=== PATIENT | male | born 1945 | race Caucasian/White ===

== ENCOUNTER 2022-04-24 10:25 | Emergency (ER) | payer OTHER ==
[~2022-04-24] VITALS: Ht 177.8 cm; Wt 104.3 kg
[2022-04-24 11:06] LABS: HEMATOCRIT 29.8 % (36.7-47.1); MEAN CORPUSCULAR HEMOGLOBIN 29.9 uug (23.8-33.4); MEAN CORPUSCULAR VOLUME 92.1 fL (73.0-96.2); PLATELET COUNT (AUTO) 98 K/uL (152-348)
[2022-04-24] MEDS ORDERED: TDAP DIPH,PERTUSS,TET VAC/PF 0.5 ML DISP.SYRIN IM ONE (11:15)
[2022-04-24 11:19] LABS: CARBON DIOXIDE 23 mmol/L (21-32); CHLORIDE 101 mmol/L (98-107); CREATININE 1.6 mg/dL (0.6-1.3); GLUCOSE 134 mg/dL (74-106); POTASSIUM 4.2 mmol/L (3.5-5.1); UREA NITROGEN, BLOOD 43 mg/dL (7-18)
[2022-04-24 11:20] LABS: ETHANOL 145 MG/DL (0-0)
[2022-04-24 11:28] LABS: ALANINE AMINOTRANSFERASE 25 U/L (16-63); ALKALINE PHOSPHATASE 174 U/L (50-136); ASPARTATE AMINOTRANSFERASE 48 U/L (15-37); BILIRUBIN,DIRECT 0.5 mg/dL (0.0-0.2); TOTAL PROTEIN, SERUM 7.7 g/dL (6.4-8.2)
--- NOTE | 2022-04-24 11:29 | NUR ---
Cleaned and place dressing on Pt's, Rt elbow skin tear.
--- NOTE | 2022-04-24 12:10 | NUR ---
DR DE LA ROSA SPOKE WITH PATIENT AND WILL DC WILL BELLA NEED TO TALK TO MARTINI BEFORE DC HOME.
[2022-04-24 12:24] VITALS: BP 133/69
== END 2022-04-24 12:25 | disposition home or self-care (01) ==
LOC: ER 10:25
DX: I48.91 Unspecified atrial fibrillation (principal); S51.011A Laceration without foreign body of right elbow, initial encounter; W19.XXXA Unspecified fall, initial encounter; Y92.89 Other specified places as the place of occurrence of the external cause; K70.31 Alcoholic cirrhosis of liver with ascites; E11.9 Type 2 diabetes mellitus without complications; Y90.6 Blood alcohol level of 120-199 mg/100 ml
CPT/HCPCS: 36415; 70450; 71045; 72125; 73080; 84484; 85025; 85730; 93005; A4663; G0480

== ENCOUNTER 2022-05-17 13:09 | Inpatient (IN) | payer OTHER ==
[2022-05-17] VITALS (7 sets, daily range): BP systolic 104–141; BP diastolic 42–69
[~2022-05-17] VITALS: Ht 177.8 cm; Wt 104.3 kg
[2022-05-17] MEDS ORDERED: FUROSEMIDE 20 MG/2 ML VIAL IVP ONE (13:30)
[2022-05-17 13:54] LABS: HEMATOCRIT 23.4 % (36.7-47.1); MEAN CORPUSCULAR HEMOGLOBIN 29.1 uug (23.8-33.4); MEAN CORPUSCULAR VOLUME 91.2 fL (73.0-96.2); PLATELET COUNT (AUTO) 127 K/uL (152-348)
[2022-05-17 14:08] LABS: ALANINE AMINOTRANSFERASE 32 U/L (16-63); ALKALINE PHOSPHATASE 148 U/L (50-136); ASPARTATE AMINOTRANSFERASE 38 U/L (15-37); BILIRUBIN,DIRECT 0.9 mg/dL (0.0-0.2); BILIRUBIN,TOTAL 2.3 mg/dL (0.2-1.0); CARBON DIOXIDE 21 mmol/L (21-32); CHLORIDE 99 mmol/L (98-107); CREATININE 2.1 mg/dL (0.6-1.3); GLUCOSE 287 mg/dL (74-106); TOTAL PROTEIN, SERUM 6.8 g/dL (6.4-8.2); UREA NITROGEN, BLOOD 78 mg/dL (7-18)
[2022-05-17 14:15] LABS: POTASSIUM 6.7 mmol/L (3.5-5.1)
[2022-05-17] MEDS ORDERED: SODIUM BICARBONATE 8.4% 100 MEQ in IV D5W 1000ML 1,000 ML IV ONE (14:30)
[2022-05-17] MEDS ORDERED: ALBUTEROL SULFATE 2.5 MG/3 ML NEBU NEB ONE (14:30)
[2022-05-17] MEDS ORDERED: INSULIN REGULAR, HUMAN 300 UNIT/3 ML VIAL IV ONE (14:30)
[2022-05-17] MEDS ORDERED: CEFTRIAXONE 1 G in IV DEXTROSE 5% 50 ML IV ONE (14:30)
[2022-05-17] MEDS ORDERED: SODIUM BICARBONATE 8.4% 50 MEQ/50 ML DISP.SYRIN IV ONE ×2 (14:30→14:41)
[2022-05-17] MEDS ORDERED: DEXTROSE 50% 50 ML DISP.SYRIN IV ONE (14:30)
[2022-05-17] MEDS ORDERED: SODIUM POLYSTYRENE SULFONATE 15 G/60 ML LIQUID UDC PO ONE (14:30)
[2022-05-17] MEDS ORDERED: ALBUTEROL SULFATE 2.5 MG/3 ML NEBU ONE (14:39)
[2022-05-17] MEDS ORDERED: SODIUM POLYSTYRENE SULFONATE 15 G/60 ML LIQUID UDC ONE (14:41)
[2022-05-17] MEDS ORDERED: DEXTROSE 50% 50 ML DISP.SYRIN ONE (14:41)
[2022-05-17] MEDS ORDERED: CEFTRIAXONE /D5W 50ML IVPB **ER PYXIS IV ONE (14:41)
[2022-05-17] MEDS ORDERED: INSULIN REGULAR, HUMAN 300 UNIT/3 ML VIAL ONE (14:42)
--- NOTE | 2022-05-17 15:02 | NUR ---
PT UNABLE TO RECALL MEDS AND DOSAGESOF HIS MEDICATIONS, PT GETTING VERY AGITATED WHEN ASKED ABOUT MEDS.
[2022-05-17] MEDS ORDERED: IV NORMAL SALINE 1000 ML BAG IV ONE (16:15)
[2022-05-17 16:36] LABS: *BILIRUBIN,URIN 1+ (NEGATIVE); *BLOOD, URINE NEGATIVE (NEGATIVE); *CLARITY,URINE CLEAR (CLEAR); *COLOR,URINE YELLOW (YELLOW); *KETONES,URINE TRACE (NEGATIVE); *UROBILINOGEN,URINE 0.2 E.U./dl (NORMAL); LEUKOCYTE ESTERASE ,URINE 1+ (NEGATIVE); NITRITE, URINE NEGATIVE (NEGATIVE); UGLUCOSE NEGATIVE (NEGATIVE)
--- NOTE | 2022-05-17 17:00 | NUR ---
Gave report to RAVEN Ch.
--- NOTE | 2022-05-17 17:20 | NUR ---
Patient transferred to CCU unit room 4 with monitor attached. Accompanied by RN.
[2022-05-17] MEDS ORDERED: DOSING BY PHARMACY-MD TO SPECIFY MED/ROUTE XX PRN (17:30)
[2022-05-17] MEDS ORDERED: ACETAMINOPHEN 325 MG TABLET PO PRN (18:15)
[2022-05-17] MEDS ORDERED: ONDANSETRON 4 MG/2 ML VIAL IV PRN (18:15)
[2022-05-17] MEDS ORDERED: HYDROCODONE/APAP 5-325MG TABLET PO PRN (18:15)
[2022-05-17] MEDS ORDERED: REMEDY ESSENTIAL ZINC PASTE 113 GM TP PRN (18:15)
[2022-05-17] MEDS ORDERED: FURO20TA4 PO (18:23)
[2022-05-17] MEDS ORDERED: GLIP5TAB13 PO (18:23)
[2022-05-17] MEDS ORDERED: ALLO300T2 PO (18:23)
[2022-05-17] MEDS ORDERED: SPIR25TA6 PO (18:23)
--- NOTE | 2022-05-17 18:30 | NUR ---
PT TRANSFERRED TO CCU FROM ER, REPORT RECEIVED FROM NURSE. PT ON ROOM AIR, SATURATING AT 100%, A/OX4, WEAK GAIT, WALKS WITH WALKER AT HOME PER , PT HAD 300CC URINE OUT PUT VIA RICH, NEW IV ACCESS IN R AC 20G, CRITICAL LAB LACTIC ACID 7.4, NOTIFIED . FAMILY JARED KEY , MATTHEW SUEROD .
[2022-05-17 18:35] LABS: ETHANOL < 3 MG/DL (0-0)
[2022-05-17 18:39] LABS: CARBON DIOXIDE 20 mmol/L (21-32); CHLORIDE 101 mmol/L (98-107); CREATININE 2.3 mg/dL (0.6-1.3); POTASSIUM 5.1 mmol/L (3.5-5.1); UREA NITROGEN, BLOOD 79 mg/dL (7-18)
[2022-05-17 18:43] LABS: GLUCOSE 351 mg/dL (74-106)
[2022-05-17] MEDS ORDERED: IV NS 1000 ML 1,000 ML IV PRN (19:30)
[2022-05-17] MEDS ORDERED: METOPROLOL TARTRATE 25 MG TABLET PO ONE (20:30)
[2022-05-17] MEDS ORDERED: DEXTROSE 50% 50 ML DISP.SYRIN IV PRN (20:45)
[2022-05-17] MEDS: BLOOD SUGAR DIAGNOSTIC 1 EACH STRIP VI SCH (21:00)
[2022-05-17] MEDS: PIPERACILLIN SODIUM/TAZOBACTAM 3.375 G in IV DEXTROSE 5% 100 ML IV SCH (21:41)
[2022-05-17] MEDS: INSULIN REGULAR, HUMAN 300 UNIT/3 ML VIAL SQ PRN (22:46)
[2022-05-17 22:47] LABS: RBC,URINE 0-3 /HPF (0-3)
[2022-05-17 22:48] LABS: BACTERIA,URINE MA /HPF (NONE SEEN); SQUAMOUS EPITHELIAL CELL,UR FEW /HPF (NONE SEEN)
[2022-05-17] MEDS: LORAZEPAM 2 MG/1 ML VIAL IV PRN (23:54)
[2022-05-18] VITALS (27 sets, daily range): BP systolic 89–143; BP diastolic 43–97
[2022-05-18 05:15] LABS: MEAN CORPUSCULAR HEMOGLOBIN 28.5 uug (23.8-33.4); MEAN CORPUSCULAR VOLUME 91.6 fL (73.0-96.2); PLATELET COUNT (AUTO) 114 K/uL (152-348)
[2022-05-18 05:30] LABS: HEMATOCRIT 17.8 % (36.7-47.1)
[2022-05-18 05:33] LABS: IRON, SERUM 17 ug/dL (50-175)
[2022-05-18 05:38] LABS: THYROID STIMULATING HORMONE 4.505 mIU/mL (0.358-3.740)
[2022-05-18] MEDS: PIPERACILLIN SODIUM/TAZOBACTAM 3.375 G in IV DEXTROSE 5% 100 ML IV SCH ×3 (05:38→21:21)
[2022-05-18 05:54] LABS: CARBON DIOXIDE 28 mmol/L (21-32); CHLORIDE 104 mmol/L (98-107); CHOLESTEROL 80 mg/dL (<200); FERRITIN 59 ng/mL (26-388); GLUCOSE 248 mg/dL (74-106); HDL CHOLESTEROL 47 mg/dL (40-60); MAGNESIUM 1.6 mg/dL (1.8-2.4); PHOSPHOROUS 3.7 mg/dL (2.5-4.9); POTASSIUM 4.4 mmol/L (3.5-5.1); TRIGLYCERIDES 70 MG/DL (30-150)
[2022-05-18 05:55] LABS: UREA NITROGEN, BLOOD 83 mg/dL (7-18)
[2022-05-18 06:16] LABS: EOSINOPHILS % (MANUAL) 1 % (0-8); LYMPHOCYTES % (MANUAL) 2 % (20-40); MONOCYTES % (MANUAL) 4 % (2-10); NEUTROPHILS % (MANUAL) 93 % (42-75)
[2022-05-18] MEDS: PANTOPRAZOLE SODIUM 40 MG TABLET.DR PO SCH (06:56)
[2022-05-18] MEDS: BLOOD SUGAR DIAGNOSTIC 1 EACH STRIP VI SCH ×4 (07:30→21:17)
[2022-05-18] MEDS: FOLIC ACID 1 MG TABLET PO SCH (09:01)
[2022-05-18] MEDS: THIAMINE HCL 100 MG TABLET PO SCH (09:02)
[2022-05-18] MEDS: INSULIN REGULAR, HUMAN 300 UNIT/3 ML VIAL SQ PRN ×4 (09:11→21:16)
[2022-05-18] MEDS ORDERED: MAGNESIUM SULFATE/D5W 100 ML IV SCH (11:00)
[2022-05-18] MEDS ORDERED: PROP10TA10 PO (12:49)
[2022-05-18] MEDS ORDERED: TRAZ-182 PO (12:49)
[2022-05-18] MEDS ORDERED: SOD FERRIC GLUC COMPLX/SUCROSE 125 MG in IV NORMAL SALINE 100 ML IV ONE (14:00)
--- NOTE | 2022-05-18 16:00 | NUR ---
Dr. Rivers in the unit to see patient. If heart rate sustains at 120's will consider medications for rate control. For now its ok if patient goes up to 120's and goes back down as long as not sustaining. patient sleepin and at rest maintains 106 and less than 110.
--- NOTE | 2022-05-18 19:00 | NUR ---
RECEIVED REPORT FROM DIANA CARBAJAL.
[2022-05-18] MEDS: TRAZODONE 50 MG TABLET PO SCH (20:27)
[2022-05-18] MEDS: ALLOPURINOL 100 MG TABLET PO SCH (20:27)
[2022-05-19] VITALS (40 sets, daily range): BP systolic 78–178; BP diastolic 30–107
[2022-05-19 05:46] LABS: HEMATOCRIT 22.8 % (36.7-47.1); MEAN CORPUSCULAR HEMOGLOBIN 29.4 uug (23.8-33.4); MEAN CORPUSCULAR VOLUME 91.5 fL (73.0-96.2); PLATELET COUNT (AUTO) 93 K/uL (152-348)
[2022-05-19] MEDS: PIPERACILLIN SODIUM/TAZOBACTAM 3.375 G in IV DEXTROSE 5% 100 ML IV SCH ×3 (06:10→20:26)
[2022-05-19] MEDS: PANTOPRAZOLE SODIUM 40 MG TABLET.DR PO SCH (06:14)
[2022-05-19 06:15] LABS: CARBON DIOXIDE 26 mmol/L (21-32); CHLORIDE 109 mmol/L (98-107); CREATININE 1.9 mg/dL (0.6-1.3); GLUCOSE 187 mg/dL (74-106); PHOSPHOROUS 3.4 mg/dL (2.5-4.9); POTASSIUM 3.9 mmol/L (3.5-5.1)
[2022-05-19 06:19] LABS: LYMPHOCYTES % (MANUAL) 5 % (20-40); MONOCYTES % (MANUAL) 4 % (2-10); NEUTROPHILS % (MANUAL) 91 % (42-75)
[2022-05-19 06:44] LABS: UREA NITROGEN, BLOOD 81 mg/dL (7-18)
--- NOTE | 2022-05-19 07:00 | NUR ---
REPORT GIVEN TO LATA CARBAJAL.
--- NOTE | 2022-05-19 07:06 | NUR ---
SHADE MADE AWARE OF PATIENT HR FLUCTUATING TO 126, 114, 94, NO NEW ORDER GIVEN.
[2022-05-19] MEDS: BLOOD SUGAR DIAGNOSTIC 1 EACH STRIP VI SCH ×4 (07:30→20:56)
[2022-05-19] MEDS: INSULIN REGULAR, HUMAN 300 UNIT/3 ML VIAL SQ PRN ×2 (08:55→20:55)
[2022-05-19] MEDS: FOLIC ACID 1 MG TABLET PO SCH (10:29)
[2022-05-19] MEDS: THIAMINE HCL 100 MG TABLET PO SCH (10:29)
[2022-05-19] MEDS ORDERED: OCTREOTIDE ACETATE 50 MCG/1 ML ML IV ONE (13:00)
[2022-05-19] MEDS: OCTREOTIDE ACETATE DRIP 500 MCG in IV NORMAL SALINE 99 ML IV PRN ×2 (13:33→21:02)
[2022-05-19] MEDS: FAMOTIDINE. 20 MG/2 ML VIAL IV SCH ×2 (13:53→21:30)
[2022-05-19] MEDS: SOD FERRIC GLUC COMPLX/SUCROSE 125 MG in IV NORMAL SALINE 100 ML IV SCH (16:11)
--- NOTE | 2022-05-19 16:17 | NUR ---
pt blood sugar at 12:30 pm was 291.. pt informed of blood sugar result and his order to be covered by Regular Insulin but pt refused insulin coverage..
--- NOTE | 2022-05-19 16:20 | NUR ---
Call received from [facility] for pt update for possible transfer..pt was denied transfer per workforce services representative due to pt instability..AARTI Wna was informed of this denial from [place]..
--- NOTE | 2022-05-19 16:33 | NUR ---
BLOOD SUGAR 289..PT REFUSED INSULIN COVERAGE AGAIN..
[2022-05-19] MEDS: GLUCERNA SHAKE 237 ML CAN PO SCH (17:55)
[2022-05-19] MEDS: ARGININE/GLUTAMINE/CALCIUM BMB 1 EACH POWD.PACK PO SCH (17:55)
--- NOTE | 2022-05-19 19:00 | NUR ---
RECEIVED REPORT FROM LATA CARBAJAL.
[2022-05-19] MEDS: ALLOPURINOL 100 MG TABLET PO SCH (20:25)
[2022-05-19] MEDS: TRAZODONE 50 MG TABLET PO SCH (20:26)
[2022-05-19] MEDS ORDERED: INSULIN GLARGINE,HUM 300 UNITS/3 ML CARTRIDGE SQ SCH (21:00)
[2022-05-19] MEDS ORDERED: INSULIN GLARGINE,HUM 300 UNITS/3 ML CARTRIDGE SQ ONE (21:03)
[2022-05-19] MEDS ORDERED: FAMOTIDINE. 20 MG/2 ML VIAL IV ONE (21:07)
--- NOTE | 2022-05-19 22:25 | NUR ---
PATIENT BP 154/61, CALL PUT OUT TO EPIV TEAM TO ASK FOR A PRN BP MED AT 2224, AWAITING CALL BACK FROM MD LOG ROLLER.
--- NOTE | 2022-05-19 22:31 | NUR ---
AV BROUSSARD RETURNED CALL AT 2130 AND WAS MADE AWARE OF PATIENT BP OF 154/61 AND HE STATED NO PRN MEDS TO BE GIVEN TO PATIENT.
[2022-05-20] VITALS (31 sets, daily range): BP systolic 96–174; BP diastolic 51–135
[2022-05-20] MEDS: LORAZEPAM 2 MG/1 ML VIAL IV PRN ×2 (03:30→11:25)
[2022-05-20 05:17] LABS: HEMATOCRIT 27.3 % (36.7-47.1); MEAN CORPUSCULAR HEMOGLOBIN 30.3 uug (23.8-33.4); PLATELET COUNT (AUTO) 115 K/uL (152-348)
[2022-05-20] MEDS: PIPERACILLIN SODIUM/TAZOBACTAM 3.375 G in IV DEXTROSE 5% 100 ML IV SCH ×2 (05:29→13:48)
[2022-05-20 05:31] LABS: CARBON DIOXIDE 24 mmol/L (21-32); CHLORIDE 108 mmol/L (98-107); GLUCOSE 189 mg/dL (74-106); PHOSPHOROUS 3.5 mg/dL (2.5-4.9); POTASSIUM 3.8 mmol/L (3.5-5.1); UREA NITROGEN, BLOOD 65 mg/dL (7-18)
--- NOTE | 2022-05-20 06:55 | NUR ---
FACE TO FACE: PATIENT CONTINUE TO PULL OFF HIS LEADS, TRIED TO PULL HIS PICV LINE AND RICH OUT AND SO PATIENT WAS PLACED ON RESTRAINTS PER ORDER PRADIP RETREAD TECHNICIAN.
[2022-05-20] MEDS: INSULIN REGULAR, HUMAN 300 UNIT/3 ML VIAL SQ PRN ×2 (08:02→11:29)
[2022-05-20] MEDS: GLUCERNA SHAKE 237 ML CAN PO SCH (08:03)
[2022-05-20] MEDS: BLOOD SUGAR DIAGNOSTIC 1 EACH STRIP VI SCH ×2 (08:03→11:25)
[2022-05-20] MEDS ORDERED: DILTIAZEM HCL 25 MG IV IV ONE (09:15)
[2022-05-20] MEDS: DILTIAZEM HCL 60 MG TABLET PO SCH ×2 (09:15→13:47)
[2022-05-20] MEDS: FAMOTIDINE. 20 MG/2 ML VIAL IV SCH (09:45)
[2022-05-20] MEDS: FOLIC ACID 1 MG TABLET PO SCH (09:45)
[2022-05-20] MEDS: ARGININE/GLUTAMINE/CALCIUM BMB 1 EACH POWD.PACK PO SCH (09:45)
[2022-05-20] MEDS: THIAMINE HCL 100 MG TABLET PO SCH (09:46)
[2022-05-20] MEDS ORDERED: QUETIAPINE FUMARATE 25 MG TABLET PO PRN (11:00)
[2022-05-20] MEDS ORDERED: LORAZEPAM 2 MG/1 ML VIAL IV PRN (11:00)
[2022-05-20] MEDS ORDERED: HALOPERIDOL LACTATE 5 MG/1 ML VIAL IV ONE (11:15)
--- NOTE | 2022-05-20 11:36 | NUR ---
[facility] RESEARCH PROGRAM ASSISTANT present patient yelling out screaming and pulls on lines new orders written.
--- NOTE | 2022-05-20 12:11 | NUR ---
Calm and sleeping awakes easily then back to sleep.
--- NOTE | 2022-05-20 12:12 | NUR ---
[facility] called will accept patient today for transfer to their facility they will call back with transfer time. Orders placed for transfer spoke with and updated on transfer will call for consent for transfer when adin call back with time of transfer.
--- NOTE | 2022-05-20 12:42 | NUR ---
Updated via telephone and consent for transfer to [facility] received.
[2022-05-20] MEDS: SOD FERRIC GLUC COMPLX/SUCROSE 125 MG in IV NORMAL SALINE 100 ML IV SCH (13:46)
--- NOTE | 2022-05-20 16:39 | NUR ---
Report given to [place] RN, updated of transfer to [facility], Transport present ambulance with RN report given. Afebrile 97.8 Octreotide at 10ml/hr and N/S at 75ml/hr continues during transport no signs of bleeding. Remains on room air at 100% pink, warm and dry to touch.
--- NOTE | 2022-05-20 16:54 | NUR ---
Transferred to [facility] left with ambulance awake
[2022-05-20] MEDS ORDERED: CHLORDIAZEPOXIDE HCL 25 MG CAPSULE PO SCH (17:00)
== END 2022-05-20 16:57 | disposition short-term general hospital (02) | DRG 871 ==
LOC: ER 13:09 → ICU 16:39 → CCU 19:30
PROVIDERS: ADMIT Nurse Practitioner Family; ATTEND Nurse Practitioner Family
PROC: 30233N1 Transfusion of Nonautologous Red Blood Cells into Peripheral Vein, Percutaneous Approach (ICD-10-PCS; principal; 2022-05-18)
DX: A41.9 Sepsis, unspecified organism (principal); J15.9 Unspecified bacterial pneumonia; N17.0 Acute kidney failure with tubular necrosis; K76.7 Hepatorenal syndrome; E87.1 Hypo-osmolality and hyponatremia; E87.20 Acidosis, unspecified; K92.2 Gastrointestinal hemorrhage, unspecified; I48.0 Paroxysmal atrial fibrillation; B35.1 Tinea unguium; B35.3 Tinea pedis; D64.9 Anemia, unspecified; E11.22 Type 2 diabetes mellitus with diabetic chronic kidney disease; K76.0 Fatty (change of) liver, not elsewhere classified; N18.9 Chronic kidney disease, unspecified; R29.6 Repeated falls; E87.5 Hyperkalemia; E66.9 Obesity, unspecified; E86.1 Hypovolemia; F10.21 Alcohol dependence, in remission; Z79.84 Long term (current) use of oral hypoglycemic drugs; M10.9 Gout, unspecified; K70.30 Alcoholic cirrhosis of liver without ascites; T50.2X5A Adverse effect of carbonic-anhydrase inhibitors, benzothiadiazides and other diuretics, initial encounter; Y92.009 Unspecified place in unspecified non-institutional (private) residence as the place of occurrence of the external cause
CPT/HCPCS: 36415; 51702; 70030-TC; 71045; 76700; 82747; 83550; 83605; 83735; 84100; 84443; 84484; 85014; 85025; 85730; 86803; 86850; 86900; 86901; 86920; 87040; 87806; 93005; 93307; C1758; G0378; G0480; J0696; J1630; J1815; J2060; J2354; J2543; J2916; J3475; J3490; J7040; J7070; J8499; P9016

== ENCOUNTER 2022-06-06 01:22 | Emergency (ER) | payer OTHER ==
[~2022-06-06] VITALS: Ht 1732.3 cm; Wt 106.6 kg
[~2022-06-06 01:22] MED LIST: ALLO300T2 PO; TRAZ-182 PO
[2022-06-06] MEDS ORDERED: ONDANSETRON 4 MG/2 ML VIAL IV ONE (01:45)
[2022-06-06 01:59] LABS: MEAN CORPUSCULAR HEMOGLOBIN 30.9 uug (23.8-33.4); MEAN CORPUSCULAR VOLUME 93.9 fL (73.0-96.2); PLATELET COUNT (AUTO) 141 K/uL (152-348)
[2022-06-06] MEDS ORDERED: ONDANSETRON 4 MG/2 ML VIAL ONE (02:03)
[2022-06-06 02:09] LABS: CARBON DIOXIDE 23 mmol/L (21-32); CHLORIDE 105 mmol/L (98-107); CREATININE 1.4 mg/dL (0.6-1.3); GLUCOSE 158 mg/dL (74-106); POTASSIUM 4.8 mmol/L (3.5-5.1); UREA NITROGEN, BLOOD 35 mg/dL (7-18)
[2022-06-06 02:15] LABS: ALANINE AMINOTRANSFERASE 37 U/L (16-63); ALKALINE PHOSPHATASE 196 U/L (50-136); ASPARTATE AMINOTRANSFERASE 40 U/L (15-37); BILIRUBIN,DIRECT 1.6 mg/dL (0.0-0.2); BILIRUBIN,TOTAL 2.8 mg/dL (0.2-1.0); TOTAL PROTEIN, SERUM 6.6 g/dL (6.4-8.2)
[2022-06-06] MEDS ORDERED: DILTIAZEM HCL IV 10 MG in IV DEXTROSE 5% 100 ML IV ONE (02:15)
[2022-06-06] MEDS ORDERED: DILTIAZEM HCL IV 125 MG in IV NORMAL SALINE 100 ML IV PRN (02:15)
--- NOTE | 2022-06-06 02:15 | NUR ---
Cardizem 10mg given. unable to chart from [facility].
[2022-06-06] MEDS ORDERED: DILTIAZEM HCL 25 MG IV ONE (02:21)
[2022-06-06] MEDS ORDERED: DILTIAZEM HCL 50 MG IV ONE (03:01)
--- NOTE | 2022-06-06 03:03 | NUR ---
Pulled out Cardizem 125mg in IV NS 100ml from pyxis due to Kieran CARBAJAL no access to pyxis medication administed by Kieran CARBAJAL
--- NOTE | 2022-06-06 03:35 | NUR ---
CALLED LIANET PERKINS
[2022-06-06] MEDS ORDERED: PANTOPRAZOLE SODIUM IV 80 MG in IV DEXTROSE 5% 100 ML IV ONE (03:45)
[2022-06-06] MEDS ORDERED: PANTOPRAZOLE SODIUM 40 MG VIAL ONE (04:31)
[2022-06-06] MEDS ORDERED: LORAZEPAM 2 MG/1 ML VIAL IV ONE (04:45)
[2022-06-06] MEDS ORDERED: LORAZEPAM 2 MG/1 ML VIAL ONE (04:52)
--- NOTE | 2022-06-06 06:52 | NUR ---
REPORT GIVEN TO JEANNINE CARBAJAL.
--- NOTE | 2022-06-06 07:23 | NUR ---
[facility] DICTAPHONE TYPIST ANDRIO CALLED WITH TRANSFER INFORMATION : PT IS GOING TO GO TO [facility], ROOM #5310-A, TELEPHONE NUMBER TO GIVE REPORT - [phone], CORBY VARGAS IS DR PATEL, ETA IS 1030. PT IS RESTING IN BED COMFORTABLY, CONTINUE TO MONITOR THE PT, NO S/S OF ACUTE DISTRESS AT THIS TIME.
--- NOTE | 2022-06-06 09:32 | NUR ---
REPORT WAS GIVEN TO JOY OGDEN RAVEN CORMIER.
--- NOTE | 2022-06-06 10:53 | NUR ---
REPORT WAS GIVEN TO AMBULANCE RN. PT WAS TRANSFERED TO [facility] , ROOM #5310A VIA [facility].
[2022-06-06 10:57] VITALS: BP 121/68
== END 2022-06-06 11:22 | disposition short-term general hospital (02) ==
LOC: ER 01:33
DX: I48.91 Unspecified atrial fibrillation (principal); D64.9 Anemia, unspecified; K92.2 Gastrointestinal hemorrhage, unspecified; Z20.822 Contact with and (suspected) exposure to COVID-19; E11.9 Type 2 diabetes mellitus without complications; Z79.899 Other long term (current) drug therapy
CPT/HCPCS: 99291; 96366; 96365; 96375; 87426; 80076; 80048; 82140; 82962; 85025; 85610; 85730; 84484; 36415; 93005; 71045; J3490 ×4; J2060; J2405; C9113 ×2; A4663

== ENCOUNTER 2022-07-25 04:55 | Emergency (ER) | payer OTHER ==
[~2022-07-25] VITALS: Ht 172.7 cm; Wt 106.6 kg
--- NOTE | 2022-07-25 05:31 | NUR ---
Patient arrived via ambulance from home with c/o fever and weakness that started about 3 hours ago. Patient placed into room # 1-a, informed of plan of care, assisted into gown, placed on monitor, #20g established in right arm, blood collected and sent to lab. Bedside EKG done for MD review. Patient is A/Ox4, skin is warm to touch, no s/s of any respiratory distress, abd non tender to palpation with positive bowel sounds, BUE with scatteded brusing and scabbed areas, BLE discolored with edema. Side rails up will continue to monitor.
[2022-07-25 05:40] LABS: HEMATOCRIT 32.3 % (36.7-47.1); MEAN CORPUSCULAR HEMOGLOBIN 30.2 uug (23.8-33.4); MEAN CORPUSCULAR VOLUME 92.9 fL (73.0-96.2); PLATELET COUNT (AUTO) 94 K/uL (152-348)
[2022-07-25 05:42] LABS: CARBON DIOXIDE 27 mmol/L (21-32); CHLORIDE 99 mmol/L (98-107); CREATININE 1.3 mg/dL (0.6-1.3); GLUCOSE 271 mg/dL (74-106); POTASSIUM 4.2 mmol/L (3.5-5.1); UREA NITROGEN, BLOOD 20 mg/dL (7-18)
[2022-07-25 05:54] LABS: ALANINE AMINOTRANSFERASE 11 U/L (16-63); ALKALINE PHOSPHATASE 170 U/L (50-136); ASPARTATE AMINOTRANSFERASE 20 U/L (15-37); BILIRUBIN,DIRECT 0.9 mg/dL (0.0-0.2); TOTAL PROTEIN, SERUM 7.6 g/dL (6.4-8.2)
[2022-07-25] MEDS ORDERED: AZITHROMYCIN IV 500 MG in IV DEXTROSE 5% 250 ML IV ONE (07:00)
[2022-07-25] MEDS ORDERED: VANCOMYCIN 1G/D5W 200 ML PIGGYBACK IV ONE (07:00)
[2022-07-25] MEDS ORDERED: PIPERACILLIN SODIUM/TAZOBACTAM 3.375 G in IV DEXTROSE 5% 50 ML IV ONE (07:00)
[2022-07-25] MEDS ORDERED: VANCOMYCIN IV 200 ML ONE (07:01)
[2022-07-25] MEDS ORDERED: PIPERACILLIN/TAZOBACTAM/D5W 50 ML IV ONE (07:01)
[2022-07-25] MEDS ORDERED: AZITHROMYCIN 500MG/ D5W 250ML IVPB **ER PYXIS ONLY IV ONE (07:02)
--- NOTE | 2022-07-25 07:12 | NUR ---
Report given to rob Tripp, patient remains stable.
[2022-07-25 08:38] LABS: ETHANOL < 3 MG/DL (0-0)
[2022-07-25 09:03] LABS: *BILIRUBIN,URIN 1+ (NEGATIVE); *BLOOD, URINE 3+ (NEGATIVE); *CLARITY,URINE CLOUDY (CLEAR); *COLOR,URINE YELLOW (YELLOW); *KETONES,URINE NEGATIVE (NEGATIVE); LEUKOCYTE ESTERASE ,URINE 1+ (NEGATIVE); NITRITE, URINE POSITIVE (NEGATIVE); PH,URINE 5.5 (5.0-8.0); UGLUCOSE NEGATIVE (NEGATIVE)
--- NOTE | 2022-07-25 10:15 | NUR ---
Received telephone call from [facility] with transfer information: Facility: [place], [address] Accepting MD: Aidee Lea Transport: [facility] ambulance, ETA for continuous pickling line pickler [phone] Call report to: [phone]
--- NOTE | 2022-07-25 10:45 | NUR ---
Family arrived and are at the bedside. Plan of care discussed with family/pt by ER physician.
--- NOTE | 2022-07-25 12:00 | NUR ---
Pt transfered to [facility] (room 4305) via [facility]. SBAR report given to EMT. Attempted to call telephone report to [facility] multiple times ([phone]). No answer on multiple calls, call answered twice and was placed on hold >10mins each time with no answer after.
[2022-07-25 12:35] LABS: BACTERIA,URINE FEW /HPF (NONE SEEN); RBC,URINE 20-50 /HPF (0-3); SQUAMOUS EPITHELIAL CELL,UR MODERATE /HPF (NONE SEEN); URINE AMORPHOUS URATE MANY /HPF
--- NOTE | 2022-07-25 12:50 | NUR ---
SBAR report given RAVEN Danielle at [facility] via telephone.
== END 2022-07-25 12:33 | disposition short-term general hospital (02) ==
LOC: ER 04:58
DX: A41.9 Sepsis, unspecified organism (principal); N39.0 Urinary tract infection, site not specified; R53.1 Weakness; R50.9 Fever, unspecified; Z20.822 Contact with and (suspected) exposure to COVID-19; E11.9 Type 2 diabetes mellitus without complications; K70.31 Alcoholic cirrhosis of liver with ascites; Z79.899 Other long term (current) drug therapy; R00.0 Tachycardia, unspecified
CPT/HCPCS: 87804 ×2; 80076; 80048; 81001; 82140; 83880; 85025; 84145; 85730; 87426; 87040 ×3; 84484; 36415; 93005; 71045; 99285; 96365; 96367; 83605 ×2; 80320; J0456; J2543; J3370; A4663; G0480

== ENCOUNTER 2023-01-18 19:01 | Inpatient (IN) | payer OTHER ==
[~2023-01-18] VITALS: Ht 198.1 cm; Wt 93.0 kg
[2023-01-18] MEDS ORDERED: IV NORMAL SALINE 500 ML BAG IV ONE (19:15)
[2023-01-18] MEDS ORDERED: FAMOTIDINE. 20 MG/2 ML VIAL IV ONE ×2 (19:15→20:02)
[2023-01-18] MEDS ORDERED: ONDANSETRON 4 MG/2 ML VIAL IV ONE (19:15)
[2023-01-18 19:51] LABS: BASOPHILS % (AUTO) 0.2 % (0.0-2.0); DIFFERENTIAL COMMENT 0; LYMPHOCYTES # (AUTO) 0.4 K/uL (0.8-4.8); LYMPHOCYTES % (AUTO) 2.7 % (20.5-51.5); MEAN CORPUSCULAR HEMOGLOBIN 20.7 uug (23.8-33.4); MEAN CORPUSCULAR HGB CONC 28 g/dL (32.5-36.3); MEAN CORPUSCULAR VOLUME 74.5 fL (73.0-96.2); MONOCYTES # (AUTO) 0.8 K/uL (0.1-1.30); MONOCYTES % (AUTO) 5.4 % (0.0-11.0); NEUTROPHILS % (AUTO) 91.7 % (38.5-71.5); PLATELET COUNT (AUTO) 185 K/uL (152-348); RED CELL DISTRIBUTION WIDTH 19.1 % (12.1-16.2); WHITE BLOOD COUNT (AUTO) 14.2 K/uL (3.6-10.2)
[2023-01-18 19:53] LABS: AMMONIA 62 umol/L (11-32)
[2023-01-18 19:55] LABS: RED BLOOD CELL COUNT(AUTO) 2.06 MIL/uL (4.06-5.63)
[2023-01-18 19:56] LABS: HEMATOCRIT 15.4 % (36.7-47.1); HEMOGLOBIN 4.3 g/dL (12.5-16.3)
[2023-01-18] MEDS ORDERED: PANTOPRAZOLE SODIUM IV 80 MG in IV DEXTROSE 5% 100 ML IV ONE (20:00)
[2023-01-18] MEDS ORDERED: GLIP5TAB13 PO (20:03)
[2023-01-18 20:11] LABS: CALCIUM 8.7 mg/dL (8.5-10.1); CARBON DIOXIDE 13 mmol/L (21-32); CHLORIDE 106 mmol/L (98-107); CREATININE 2.5 mg/dL (0.6-1.3); GLUCOSE 264 mg/dL (74-106); SODIUM SERUM 140 mmol/L (136-145)
[2023-01-18] MEDS ORDERED: PANTOPRAZOLE SODIUM 40 MG VIAL ONE (20:14)
[2023-01-18] MEDS ORDERED: OCTREOTIDE ACETATE DRIP 500 MCG in IV NORMAL SALINE 99 ML IV SCH (20:15)
[2023-01-18] MEDS ORDERED: OCTREOTIDE ACETATE 500 MCG/1 ML VIAL ONE (20:16)
[2023-01-18 20:21] LABS: POTASSIUM 6.7 mmol/L (3.5-5.1)
[2023-01-18 20:22] LABS: UREA NITROGEN, BLOOD 142 mg/dL (7-18)
[2023-01-18 20:26] LABS: ALANINE AMINOTRANSFERASE 19 U/L (16-63); ALBUMIN 2.8 g/dL (3.4-5.0); ALKALINE PHOSPHATASE 142 U/L (50-136); ASPARTATE AMINOTRANSFERASE 21 U/L (15-37); BILIRUBIN,DIRECT 0.6 mg/dL (0.0-0.2); BILIRUBIN,TOTAL 1.4 mg/dL (0.2-1.0); LIPASE 158 U/L (73-393); TOTAL PROTEIN, SERUM 6.9 g/dL (6.4-8.2)
[2023-01-18] MEDS ORDERED: CEFTRIAXONE 1 G in IV DEXTROSE 5% 50 ML IV ONE (20:45)
[2023-01-18] MEDS ORDERED: INSULIN REGULAR, HUMAN 300 UNIT/3 ML VIAL IV ONE (20:45)
[2023-01-18] MEDS ORDERED: AMIODARONE HCL IV 150 MG in IV DEXTROSE 5% 100 ML IV ONE (20:45)
[2023-01-18] MEDS ORDERED: DEXTROSE 50% 50 ML DISP.SYRIN IV ONE ×2 (20:45→23:15)
[2023-01-18] MEDS ORDERED: SODIUM BICARBONATE 8.4% 50 MEQ/50 ML VIAL IV ONE (20:45)
[2023-01-18] MEDS ORDERED: CALCIUM GLUCONATE IV 1 GM in IV DEXTROSE 5% 50 ML IV ONE (20:45)
[2023-01-18] MEDS ORDERED: SODIUM BICARBONATE 8.4% 50 MEQ/50 ML DISP.SYRIN IV ONE (20:48)
[2023-01-18] MEDS ORDERED: AMIODARONE HCL 150 MG/3 ML VIAL IV ONE (20:58)
[2023-01-18] MEDS ORDERED: CEFTRIAXONE /D5W 50ML IVPB **ER PYXIS IV ONE (20:58)
[2023-01-18 22:14] LABS: *OCCULT BLOOD STOOL POSITIVE (NEGATIVE)
[2023-01-18] MEDS ORDERED: FURO40TA5 PO (22:17)
[2023-01-18] MEDS ORDERED: SPIR25TA6 PO (22:17)
[2023-01-18 22:30] LABS: MONOCYTES % (MANUAL) 2 % (2-10); PLATELET ESTIMATE ADEQUATE
[2023-01-18 22:31] LABS: ANISOCYTOSIS 2+; HYPOCHROMASIA 2+
[2023-01-18 22:42] LABS: LYMPHOCYTES % (MANUAL) 1 % (20-40); NEUTROPHILS % (MANUAL) 97 % (42-75)
[2023-01-18 23:00] VITALS: BP 125/74; TEMP 98; O2SAT 100
[2023-01-18] MEDS ORDERED: ACETAMINOPHEN 650 MG SUPP.RECT RC PRN (23:15)
[2023-01-18] MEDS ORDERED: LEVALBUTEROL HCL NEB 0.63 MG/3 ML NEBU NEB PRN (23:15)
[2023-01-18] MEDS ORDERED: FUROSEMIDE 20 MG/2 ML VIAL IV PRN (23:15)
[2023-01-18] MEDS ORDERED: INSULIN REGULAR, HUMAN 300 UNIT/3 ML VIAL SQ ONE (23:15)
[2023-01-18] MEDS ORDERED: PHENYLEPHRINE IV 100 MG in IV NORMAL SALINE 240 ML IV PRN (23:15)
[2023-01-18] MEDS ORDERED: ONDANSETRON 4 MG/2 ML VIAL IV PRN (23:15)
[2023-01-19] VITALS (29 sets, daily range): BP systolic 89–132; BP diastolic 49–102; TEMP 97–98.8; O2SAT 98–100
[2023-01-19 00:35] LABS: CALCIUM 8.2 mg/dL (8.5-10.1); CARBON DIOXIDE 13 mmol/L (21-32); CHLORIDE 107 mmol/L (98-107); CREATININE 2.4 mg/dL (0.6-1.3); GLUCOSE 287 mg/dL (74-106); POTASSIUM 5.9 mmol/L (3.5-5.1); SODIUM SERUM 139 mmol/L (136-145)
[2023-01-19 00:36] LABS: HEMATOCRIT 17.2 % (36.7-47.1)
[2023-01-19 00:37] LABS: UREA NITROGEN, BLOOD 136 mg/dL (7-18)
[2023-01-19 00:45] LABS: LIPASE 109 U/L (73-393)
[2023-01-19] MEDS ORDERED: LORAZEPAM 2 MG/1 ML VIAL ONE ×2 (00:55→04:56)
[2023-01-19] MEDS ORDERED: INSULIN REGULAR, HUMAN 300 UNIT/3 ML VIAL ONE (00:56)
[2023-01-19] MEDS ORDERED: VANCOMYCIN IV 1,500 MG in IV DEXTROSE 5% 500 ML IV ONE (01:00)
[2023-01-19] MEDS ORDERED: PIPERACILLIN/TAZOBACTAM/D5W 50 ML ONE ×2 (01:12→04:56)
[2023-01-19] MEDS ORDERED: VANCOMYCIN HCL 500 MG VIAL ONE (01:14)
[2023-01-19] MEDS ORDERED: VANCOMYCIN 1000 MG VIAL ONE (01:14)
[2023-01-19 04:00] LABS: *BILIRUBIN,URIN NEGATIVE (NEGATIVE); *BLOOD, URINE NEGATIVE (NEGATIVE); *CLARITY,URINE CLEAR (CLEAR); *COLOR,URINE YELLOW (YELLOW); *KETONES,URINE NEGATIVE (NEGATIVE); *PROTEIN,URINE NEGATIVE (NEGATIVE); *UROBILINOGEN,URINE 0.2 E.U./dl (NORMAL); LEUKOCYTE ESTERASE ,URINE NEGATIVE (NEGATIVE); NITRITE, URINE NEGATIVE (NEGATIVE); PH,URINE 5.5 (5.0-8.0); UGLUCOSE NEGATIVE (NEGATIVE)
[2023-01-19] MEDS: PIPERACILLIN/TAZO 2.25 G in IV DEXTROSE 5% 50 ML IV SCH ×3 (05:40)
[2023-01-19] MEDS ORDERED: OCTREOTIDE ACETATE 100 MCG/1 MLVIAL ONE (06:32)
[2023-01-19 06:50] LABS: EOSINOPHILS % (AUTO) 0.2 % (0.0-7.0); LYMPHOCYTES # (AUTO) 0.5 K/uL (0.8-4.8)
[2023-01-19 06:51] LABS: AMMONIA 21 umol/L (11-32)
[2023-01-19 06:57] LABS: BASOPHILS # (AUTO) 0.1 K/UL (0.0-0.2); BASOPHILS % (AUTO) 0.4 % (0.0-2.0); LYMPHOCYTES % (AUTO) 3.2 % (20.5-51.5); MEAN CORPUSCULAR HEMOGLOBIN 23.6 uug (23.8-33.4); MEAN CORPUSCULAR HGB CONC 31 g/dL (32.5-36.3); MEAN CORPUSCULAR VOLUME 76.5 fL (73.0-96.2); MONOCYTES # (AUTO) 1.6 K/uL (0.1-1.30); NEUTROPHILS # (AUTO) 12.6 K/uL (1.8-8.9); NEUTROPHILS % (AUTO) 85.2 % (38.5-71.5); PLATELET COUNT (AUTO) 131 K/uL (152-348); RED BLOOD CELL COUNT(AUTO) 2.56 MIL/uL (4.06-5.63); RED CELL DISTRIBUTION WIDTH 20.6 % (12.1-16.2); WHITE BLOOD COUNT (AUTO) 14.7 K/uL (3.6-10.2)
[2023-01-19 06:58] LABS: ALANINE AMINOTRANSFERASE 17 U/L (16-63); ALBUMIN 2.5 g/dL (3.4-5.0); ALKALINE PHOSPHATASE 124 U/L (50-136); ASPARTATE AMINOTRANSFERASE 25 U/L (15-37); BILIRUBIN,TOTAL 1.4 mg/dL (0.2-1.0); CALCIUM 8.3 mg/dL (8.5-10.1); CARBON DIOXIDE 21 mmol/L (21-32); CHLORIDE 107 mmol/L (98-107); CHOLESTEROL 87 mg/dL (<200); CREATININE 2.4 mg/dL (0.6-1.3); GLUCOSE 245 mg/dL (74-106); HDL CHOLESTEROL 44 mg/dL (40-60); MAGNESIUM 2.4 mg/dL (1.8-2.4); NT-PRO BNP 2307 pg/mL (0-125); PHOSPHOROUS 4.3 mg/dL (2.5-4.9); POTASSIUM 5.3 mmol/L (3.5-5.1); SODIUM SERUM 134 mmol/L (136-145); TOTAL PROTEIN, SERUM 6.7 g/dL (6.4-8.2); TRIGLYCERIDES 76 MG/DL (30-150)
[2023-01-19 07:00] LABS: IRON, SERUM 17 ug/dL (50-175)
[2023-01-19 07:02] LABS: UREA NITROGEN, BLOOD 141 mg/dL (7-18)
[2023-01-19 07:10] LABS: THYROID STIMULATING HORMONE 1.938 mIU/mL (0.358-3.740)
[2023-01-19] MEDS: OCTREOTIDE ACETATE DRIP 500 MCG in IV NORMAL SALINE 99 ML IV SCH ×2 (07:13→16:49)
[2023-01-19 07:24] LABS: DIFFERENTIAL COMMENT 1; HEMATOCRIT 19.6 % (36.7-47.1)
[2023-01-19] MEDS: LORAZEPAM 2 MG/1 ML VIAL IV PRN (07:33)
[2023-01-19] MEDS ORDERED: PANTOPRAZOLE SODIUM 40 MG VIAL ONE ×2 (08:04→21:33)
[2023-01-19] MEDS: PANTOPRAZOLE SODIUM 40 MG VIAL IV SCH ×2 (08:43→21:39)
[2023-01-19] MEDS: SODIUM BICARBONATE 8.4% 50 MEQ in IV D5/ 0.9% NACL 1,000 ML IV PRN (08:46)
[2023-01-19] MEDS ORDERED: INSULIN GLARGINE,HUM 300 UNITS/3 ML CARTRIDGE SQ ONE (09:05)
[2023-01-19] MEDS: INSULIN GLARGINE,HUM 300 UNITS/3 ML CARTRIDGE SQ SCH (09:06)
[2023-01-19] MEDS ORDERED: VANCOMYCIN IV 1,000 MG in IV DEXTROSE 5% 250 ML IV ONE (11:30)
[2023-01-19] MEDS ORDERED: PIPERACILLIN/TAZO 2.25 G in IV DEXTROSE 5% 50 ML IV SCH (12:00)
[2023-01-19 13:17] LABS: LYMPHOCYTES % (MANUAL) 4 % (20-40); MONOCYTES % (MANUAL) 2 % (2-10); NEUTROPHILS % (MANUAL) 94 % (42-75)
[2023-01-19 13:18] LABS: PLATELET ESTIMATE SLIGHT DECREASED
[2023-01-19] MEDS: PIPERACILLIN SODIUM/TAZOBACTAM 3.375 G in IV DEXTROSE 5% 100 ML IV SCH ×2 (13:46→22:22)
[2023-01-19] MEDS ORDERED: LIDOCAINE-MPF 2% 5 ML VIAL ONE (14:00)
[2023-01-19] MEDS ORDERED: GLYCOPYRROLATE 0.2 MG/ML VIAL ONE (14:00)
[2023-01-19] MEDS ORDERED: PROPOFOL 200 MG/20 ML BOTTLE ONE (14:00)
[2023-01-19] MEDS ORDERED: ONDANSETRON 4 MG/2 ML VIAL ONE (14:00)
[2023-01-19 14:09] LABS: C-REACTIVE PROTEIN 3.2 mg/dL (0.0-0.9)
[2023-01-19 14:12] LABS: HYPOCHROMASIA 1+
[2023-01-19 14:13] LABS: ANISOCYTOSIS 1+
[2023-01-19 14:19] LABS: *RHEUMATOID FACTOR SCREEN NEGATIVE (NEGATIVE)
[2023-01-19 14:24] LABS: HEMATOCRIT 22.4 % (36.7-47.1)
[2023-01-19 14:26] LABS: HEMOGLOBIN 6.9 g/dL (12.5-16.3)
[2023-01-19 14:34] LABS: CALCIUM 8.4 mg/dL (8.5-10.1); CARBON DIOXIDE 21 mmol/L (21-32); CHLORIDE 107 mmol/L (98-107); CREATININE 2.5 mg/dL (0.6-1.3); GLUCOSE 237 mg/dL (74-106); POTASSIUM 5.3 mmol/L (3.5-5.1); SODIUM SERUM 139 mmol/L (136-145)
[2023-01-19 14:35] LABS: UREA NITROGEN, BLOOD 156 mg/dL (7-18)
[2023-01-19] MEDS ORDERED: PHARMACY TO ADD 1 AMP OF MVI DAILY TO IVF ONE BAG XX PRN (17:00)
[2023-01-19] MEDS ORDERED: IV NORMAL SALINE 250 ML IV PRN (19:00)
[2023-01-19 21:16] LABS: BASOPHILS # (AUTO) 0.1 K/UL (0.0-0.2); BASOPHILS % (AUTO) 0.8 % (0.0-2.0); EOSINOPHILS # (AUTO) 0.1 K/uL (0.0-0.7); HEMATOCRIT 25.1 % (36.7-47.1); HEMOGLOBIN 7.8 g/dL (12.5-16.3); LYMPHOCYTES # (AUTO) 0.5 K/uL (0.8-4.8); LYMPHOCYTES % (AUTO) 3.4 % (20.5-51.5); MEAN CORPUSCULAR HEMOGLOBIN 25.3 uug (23.8-33.4); MEAN CORPUSCULAR HGB CONC 31 g/dL (32.5-36.3); MEAN CORPUSCULAR VOLUME 81.6 fL (73.0-96.2); MONOCYTES # (AUTO) 1.5 K/uL (0.1-1.30); MONOCYTES % (AUTO) 10.4 % (0.0-11.0); NEUTROPHILS % (AUTO) 84.4 % (38.5-71.5); PLATELET COUNT (AUTO) 117 K/uL (152-348); RED BLOOD CELL COUNT(AUTO) 3.07 MIL/uL (4.06-5.63); RED CELL DISTRIBUTION WIDTH 21.3 % (12.1-16.2); WHITE BLOOD COUNT (AUTO) 14.2 K/uL (3.6-10.2)
[2023-01-19 21:17] LABS: DIFFERENTIAL COMMENT 1
[2023-01-19] MEDS ORDERED: FOLIC ACID 5 MG/ML VIAL IV ONE (21:33)
[2023-01-19] MEDS ORDERED: THIAMINE HCL 200 MG/2 ML VIAL ONE (21:34)
[2023-01-19] MEDS: FOLIC ACID 1 MG in IV DEXTROSE 5% 50 ML IV SCH (21:37)
[2023-01-19] MEDS: THIAMINE HCL INJ 100 MG in IV DEXTROSE 5% 50 ML IV SCH (21:37)
[2023-01-19] MEDS: NORMAL SALINE IV SCH (21:38)
[2023-01-19] MEDS: MVI ADULT IV SCH (21:38)
[2023-01-19] MEDS ORDERED: SENNOSIDES 1 TABLET ONE (23:42)
[2023-01-20] VITALS (24 sets, daily range): BP systolic 109–138; BP diastolic 57–98; TEMP 97.6–99.6; O2SAT 95–99
[2023-01-20] MEDS ORDERED: OCTREOTIDE ACETATE 500 MCG/1 ML VIAL ONE (04:18)
[2023-01-20] MEDS: OCTREOTIDE ACETATE DRIP 500 MCG in IV NORMAL SALINE 99 ML IV SCH ×2 (04:27→05:00)
[2023-01-20 04:49] LABS: BASOPHILS % (AUTO) 0.2 % (0.0-2.0); EOSINOPHILS # (AUTO) 0.2 K/uL (0.0-0.7); EOSINOPHILS % (AUTO) 1.4 % (0.0-7.0); HEMOGLOBIN 8.2 g/dL (12.5-16.3); LYMPHOCYTES # (AUTO) 0.6 K/uL (0.8-4.8); LYMPHOCYTES % (AUTO) 4.1 % (20.5-51.5); MEAN CORPUSCULAR HEMOGLOBIN 25.6 uug (23.8-33.4); MEAN CORPUSCULAR HGB CONC 32 g/dL (32.5-36.3); MEAN CORPUSCULAR VOLUME 81.1 fL (73.0-96.2); MONOCYTES # (AUTO) 1.5 K/uL (0.1-1.30); MONOCYTES % (AUTO) 11.2 % (0.0-11.0); NEUTROPHILS # (AUTO) 11.4 K/uL (1.8-8.9); NEUTROPHILS % (AUTO) 83.1 % (38.5-71.5); PLATELET COUNT (AUTO) 114 K/uL (152-348); RED CELL DISTRIBUTION WIDTH 21.1 % (12.1-16.2); WHITE BLOOD COUNT (AUTO) 13.7 K/uL (3.6-10.2)
[2023-01-20 04:53] LABS: DIFFERENTIAL COMMENT 1
[2023-01-20 05:07] LABS: ALANINE AMINOTRANSFERASE 32 U/L (16-63); ALBUMIN 2.7 g/dL (3.4-5.0); ALKALINE PHOSPHATASE 116 U/L (50-136); ASPARTATE AMINOTRANSFERASE 41 U/L (15-37); BILIRUBIN,TOTAL 2.1 mg/dL (0.2-1.0); CALCIUM 8.1 mg/dL (8.5-10.1); CARBON DIOXIDE 21 mmol/L (21-32); CHLORIDE 110 mmol/L (98-107); CREATINE KINASE, TOTAL 288 U/L (39-308); CREATININE 2.4 mg/dL (0.6-1.3); GLUCOSE 207 mg/dL (74-106); MAGNESIUM 2.3 mg/dL (1.8-2.4); PHOSPHOROUS 4.1 mg/dL (2.5-4.9); POTASSIUM 4.3 mmol/L (3.5-5.1); SODIUM SERUM 142 mmol/L (136-145); TOTAL PROTEIN, SERUM 6.8 g/dL (6.4-8.2); VANCOMYCIN,RANDOM 9.7 ug/mL (18.0-26.0)
[2023-01-20] MEDS: PIPERACILLIN SODIUM/TAZOBACTAM 3.375 G in IV DEXTROSE 5% 100 ML IV SCH ×3 (05:09→20:37)
[2023-01-20 05:16] LABS: UREA NITROGEN, BLOOD 134 mg/dL (7-18)
[2023-01-20 05:41] LABS: FERRITIN 20 ng/mL (26-388)
[2023-01-20] MEDS: SODIUM BICARBONATE 8.4% 50 MEQ in IV D5/ 0.9% NACL 1,000 ML IV PRN (08:15)
[2023-01-20] MEDS ORDERED: PANTOPRAZOLE SODIUM 40 MG VIAL ONE ×2 (08:26→20:57)
[2023-01-20] MEDS: PANTOPRAZOLE SODIUM 40 MG VIAL IV SCH ×2 (08:30→21:06)
[2023-01-20] MEDS: INSULIN GLARGINE,HUM 300 UNITS/3 ML CARTRIDGE SQ SCH (08:35)
[2023-01-20] MEDS ORDERED: FUROSEMIDE 20 MG/2 ML VIAL IV ONE (10:00)
[2023-01-20] MEDS ORDERED: FUROSEMIDE 20 MG/2 ML VIAL ONE (11:00)
[2023-01-20] MEDS ORDERED: LORAZEPAM 2 MG/1 ML VIAL ONE ×2 (11:01→20:55)
[2023-01-20] MEDS: LORAZEPAM 2 MG/1 ML VIAL IV PRN ×2 (11:04→21:06)
[2023-01-20] MEDS ORDERED: VANCOMYCIN IV 1,500 MG in IV DEXTROSE 5% 500 ML IV SCH (12:30)
[2023-01-20] MEDS: SOD FERRIC GLUC COMPLX/SUCROSE 125 MG in IV NORMAL SALINE 100 ML IV SCH (15:03)
[2023-01-20] MEDS: FOLIC ACID 1 MG in IV DEXTROSE 5% 50 ML IV SCH (18:28)
[2023-01-20] MEDS: THIAMINE HCL INJ 100 MG in IV DEXTROSE 5% 50 ML IV SCH (18:55)
[2023-01-20] MEDS: MVI ADULT IV SCH (20:36)
[2023-01-20] MEDS: NORMAL SALINE IV SCH (20:36)
[2023-01-20] MEDS ORDERED: MEROPENEM 1 G VIAL IV ONE (21:19)
[2023-01-20] MEDS: CEFEPIME HCL 1 G in IV DEXTROSE 5% 50 ML IV SCH (22:31)
[2023-01-21] VITALS (16 sets, daily range): BP systolic 72–137; BP diastolic 42–84; TEMP 97.5–97.9; O2SAT 94–99
[2023-01-21 04:46] LABS: BASOPHILS # (AUTO) 0.1 K/UL (0.0-0.2); EOSINOPHILS # (AUTO) 0.2 K/uL (0.0-0.7); EOSINOPHILS % (AUTO) 1.5 % (0.0-7.0); HEMATOCRIT 26.4 % (36.7-47.1); HEMOGLOBIN 8.3 g/dL (12.5-16.3); LYMPHOCYTES # (AUTO) 0.4 K/uL (0.8-4.8); LYMPHOCYTES % (AUTO) 2.8 % (20.5-51.5); MEAN CORPUSCULAR HEMOGLOBIN 25.7 uug (23.8-33.4); MEAN CORPUSCULAR HGB CONC 31 g/dL (32.5-36.3); MEAN CORPUSCULAR VOLUME 81.9 fL (73.0-96.2); MONOCYTES # (AUTO) 1.5 K/uL (0.1-1.30); MONOCYTES % (AUTO) 12.3 % (0.0-11.0); NEUTROPHILS # (AUTO) 10.3 K/uL (1.8-8.9); NEUTROPHILS % (AUTO) 82.4 % (38.5-71.5); PLATELET COUNT (AUTO) 105 K/uL (152-348); RED BLOOD CELL COUNT(AUTO) 3.22 MIL/uL (4.06-5.63); RED CELL DISTRIBUTION WIDTH 21.5 % (12.1-16.2); WHITE BLOOD COUNT (AUTO) 12.5 K/uL (3.6-10.2)
[2023-01-21 04:50] LABS: DIFFERENTIAL COMMENT 1
[2023-01-21] MEDS ORDERED: MEROPENEM 1 G VIAL IV ONE (04:58)
[2023-01-21 04:59] LABS: ALANINE AMINOTRANSFERASE 37 U/L (16-63); ALBUMIN 2.6 g/dL (3.4-5.0); ALKALINE PHOSPHATASE 111 U/L (50-136); ASPARTATE AMINOTRANSFERASE 44 U/L (15-37); BILIRUBIN,TOTAL 1.8 mg/dL (0.2-1.0); CARBON DIOXIDE 23 mmol/L (21-32); CHLORIDE 110 mmol/L (98-107); CREATININE 2.5 mg/dL (0.6-1.3); GLUCOSE 153 mg/dL (74-106); MAGNESIUM 2.2 mg/dL (1.8-2.4); SODIUM SERUM 143 mmol/L (136-145); TOTAL PROTEIN, SERUM 6.8 g/dL (6.4-8.2)
[2023-01-21 05:03] LABS: UREA NITROGEN, BLOOD 114 mg/dL (7-18)
[2023-01-21 05:07] LABS: PTH, INTACT 70 pg/mL (15-65)
[2023-01-21] MEDS: CEFEPIME HCL 1 G in IV DEXTROSE 5% 50 ML IV SCH (06:01)
[2023-01-21 08:07] LABS: HEPATITIS B CORE AB, TOTAL Negative (Negative); HEPATITIS B SURFACE AB, QUAL Reactive (.); HEPATITIS B SURFACE AG Negative (Negative); HEPATITIS C VIRUS ANTIBODY Non Reactive (Non Reactive)
[2023-01-21] MEDS ORDERED: PANTOPRAZOLE SODIUM 40 MG VIAL ONE (08:12)
[2023-01-21] MEDS: PANTOPRAZOLE SODIUM 40 MG VIAL IV SCH (08:13)
[2023-01-21] MEDS: INSULIN GLARGINE,HUM 300 UNITS/3 ML CARTRIDGE SQ SCH (09:16)
[2023-01-21] MEDS ORDERED: CEFEPIME HCL 1 G in IV DEXTROSE 5% 50 ML IV SCH (10:00)
[2023-01-21 11:06] LABS: A/G RATIO 0.8 (0.7-1.7); ALBUMIN 2.8 g/dL (2.9-4.4); ALPHA-1-GLOBULIN 0.2 g/dL (0.0-0.4); ALPHA-2-GLOBULIN 0.4 g/dL (0.4-1.0); BETA GLOBULIN 1.1 g/dL (0.7-1.3); GAMMA GLOBULIN 1.8 g/dL (0.4-1.8); GLOBULIN, TOTAL 3.6 g/dL (2.2-3.9); M-SPIKE Not Observed g/dL (Not Observed)
[2023-01-21] MEDS ORDERED: Insulin Glargine,Hum SQ (11:31)
[2023-01-21] MEDS ORDERED: THIA100T13 PO (11:31)
[2023-01-21] MEDS ORDERED: FOLI1TAB94 PO (11:31)
[2023-01-21] MEDS ORDERED: SOD62.5V IV (11:31)
[2023-01-21] MEDS ORDERED: CEFE1FRO IV (11:31)
[2023-01-21] MEDS ORDERED: PANT40VI IV (11:31)
[2023-01-21] MEDS: SOD FERRIC GLUC COMPLX/SUCROSE 125 MG in IV NORMAL SALINE 100 ML IV SCH (13:54)
== END 2023-01-21 15:15 | disposition short-term general hospital (02) | DRG 871 ==
LOC: ER 19:17 → TRANSITION 22:44
PROVIDERS: ADMIT Internal Medicine; ATTEND Nurse Practitioner Acute Care
PROC: 30233N1 Transfusion of Nonautologous Red Blood Cells into Peripheral Vein, Percutaneous Approach (ICD-10-PCS; principal; 2023-01-18)
PROC: 06L38CZ Occlusion of Esophageal Vein with Extraluminal Device, Via Natural or Artificial Opening Endoscopic (ICD-10-PCS; 2023-01-19)
PROC: 02HV33Z Insertion of Infusion Device into Superior Vena Cava, Percutaneous Approach (ICD-10-PCS; 2023-01-19)
PROC: B548ZZA Ultrasonography of Superior Vena Cava, Guidance (ICD-10-PCS; 2023-01-19)
DX: A41.9 Sepsis, unspecified organism (principal); E43 Unspecified severe protein-calorie malnutrition; N17.0 Acute kidney failure with tubular necrosis; G92.8 Other toxic encephalopathy; I21.A1 Myocardial infarction type 2; I85.11 Secondary esophageal varices with bleeding; K76.7 Hepatorenal syndrome; E87.20 Acidosis, unspecified; D61.818 Other pancytopenia; E87.1 Hypo-osmolality and hyponatremia; I48.20 Chronic atrial fibrillation, unspecified; K76.6 Portal hypertension; M48.56XA Collapsed vertebra, not elsewhere classified, lumbar region, initial encounter for fracture; D62 Acute posthemorrhagic anemia; K70.30 Alcoholic cirrhosis of liver without ascites; D69.59 Other secondary thrombocytopenia; D72.829 Elevated white blood cell count, unspecified; E11.22 Type 2 diabetes mellitus with diabetic chronic kidney disease; E11.65 Type 2 diabetes mellitus with hyperglycemia; E86.1 Hypovolemia; E87.5 Hyperkalemia; N18.9 Chronic kidney disease, unspecified; N62 Hypertrophy of breast; Z20.822 Contact with and (suspected) exposure to COVID-19; Z79.01 Long term (current) use of anticoagulants; Z79.84 Long term (current) use of oral hypoglycemic drugs; K31.89 Other diseases of stomach and duodenum; R53.1 Weakness; R16.1 Splenomegaly, not elsewhere classified; E86.9 Volume depletion, unspecified; M89.8X9 Other specified disorders of bone, unspecified site; K80.20 Calculus of gallbladder without cholecystitis without obstruction; S81.802A Unspecified open wound, left lower leg, initial encounter; S81.801A Unspecified open wound, right lower leg, initial encounter; X58.XXXA Exposure to other specified factors, initial encounter; Y93.9 Activity, unspecified; Y92.009 Unspecified place in unspecified non-institutional (private) residence as the place of occurrence of the external cause; F10.21 Alcohol dependence, in remission
CPT/HCPCS: 36415; 70030-TC; 70450; 71045; 71250; 76700; 82378; 83550; 83605; 83690; 83735; 83970; 84100; 84132; 84155; 84165; 84443; 84484; 85018; 85025; 85610; 85730; 86140; 86430; 86704; 86706; 86803; 86850; 86900; 86901; 86920; 87040; 87340; 93005; 93307; C9113; G0378; J0282; J0692; J0696; J1815; J1940; J2060; J2185; J2354; J2405; J2543; J2916; J3370; J3411; J3490; J7040; J7042; J7050; J7060; P9016

== ENCOUNTER 2024-06-14 16:51 | Emergency (ER) | payer OTHER ==
[~2024-06-14] VITALS: Ht 180.3 cm; Wt 95.3 kg
[~2024-06-14 16:51] MED LIST changes: -ALLO300T2 PO; +CEFE1FRO IV; +FOLI1TAB94 PO; +FURO40TA5 PO; +Insulin Glargine,Hum SQ; +PANT40VI IV; +SOD62.5V IV; +SPIR25TA6 PO; +THIA100T13 PO; -TRAZ-182 PO
[2024-06-14 18:00] LABS: BASOPHILS % (AUTO) 0.8 % (0.0-2.0); EOSINOPHILS # (AUTO) 0.2 K/uL (0.0-0.7); EOSINOPHILS % (AUTO) 3.1 % (0.0-7.0); HEMATOCRIT 28.7 % (36.7-47.1); HEMOGLOBIN 9.6 g/dL (12.5-16.3); LYMPHOCYTES # (AUTO) 0.3 K/uL (0.8-4.8); LYMPHOCYTES % (AUTO) 5.3 % (20.5-51.5); MEAN CORPUSCULAR HEMOGLOBIN 30.6 uug (23.8-33.4); MEAN CORPUSCULAR HGB CONC 33 g/dL (32.5-36.3); MEAN CORPUSCULAR VOLUME 91.5 fL (73.0-96.2); MONOCYTES # (AUTO) 0.7 K/uL (0.1-1.30); MONOCYTES % (AUTO) 12.5 % (0.0-11.0); NEUTROPHILS # (AUTO) 4.1 K/uL (1.8-8.9); NEUTROPHILS % (AUTO) 78.3 % (38.5-71.5); PLATELET COUNT (AUTO) 81 K/uL (152-348); RED BLOOD CELL COUNT(AUTO) 3.14 MIL/uL (4.06-5.63); RED CELL DISTRIBUTION WIDTH 15.3 % (12.1-16.2); WHITE BLOOD COUNT (AUTO) 5.3 K/uL (3.6-10.2)
[2024-06-14] MEDS ORDERED: PIPERACILLIN/TAZOBACTAM/D5W 50 ML IV ONE (18:02)
[2024-06-14 18:03] LABS: DIFFERENTIAL COMMENT 1
[2024-06-14 18:09] LABS: CALCIUM 8.4 mg/dL (8.5-10.1); CARBON DIOXIDE 25 mmol/L (21-32); CHLORIDE 114 mmol/L (98-107); CREATININE 2.3 mg/dL (0.6-1.3); GLUCOSE 121 mg/dL (74-106); POTASSIUM 5.5 mmol/L (3.5-5.1); SODIUM SERUM 147 mmol/L (136-145)
[2024-06-14] MEDS: PIPERACILLIN SODIUM/TAZOBACTAM 3.375 G in IV DEXTROSE 5% 50 ML IV ONE (18:10)
[2024-06-14] MEDS: IV NORMAL SALINE 1000 ML BAG IV ONE (18:10)
[2024-06-14 18:19] LABS: UREA NITROGEN, BLOOD 85 mg/dL (7-18)
[2024-06-14 18:23] LABS: ALANINE AMINOTRANSFERASE 27 U/L (16-63); ALBUMIN 3.5 g/dL (3.4-5.0); ALKALINE PHOSPHATASE 269 U/L (50-136); ASPARTATE AMINOTRANSFERASE 31 U/L (15-37); BILIRUBIN,DIRECT 0.4 mg/dL (0.0-0.2); BILIRUBIN,TOTAL 1.3 mg/dL (0.2-1.0); NT-PRO BNP 4765 pg/mL (0-125); TOTAL PROTEIN, SERUM 7.9 g/dL (6.4-8.2)
[2024-06-14] MEDS ORDERED: VANCOMYCIN IV 200 ML ONE (18:44)
[2024-06-14] MEDS: VANCOMYCIN IV 1,000 MG in IV DEXTROSE 5% 250 ML IV ONE (18:53)
[2024-06-15 03:10] VITALS: BP 131/67; TEMP 98; O2SAT 98
== END 2024-06-15 03:17 | disposition short-term general hospital (02) ==
LOC: ER 17:43
DX: L03.116 Cellulitis of left lower limb (principal); L03.115 Cellulitis of right lower limb; K70.30 Alcoholic cirrhosis of liver without ascites; N18.9 Chronic kidney disease, unspecified; R06.00 Dyspnea, unspecified; D50.9 Iron deficiency anemia, unspecified; E11.22 Type 2 diabetes mellitus with diabetic chronic kidney disease; E46 Unspecified protein-calorie malnutrition; E87.8 Other disorders of electrolyte and fluid balance, not elsewhere classified; I48.91 Unspecified atrial fibrillation; Z79.899 Other long term (current) drug therapy
CPT/HCPCS: 99285; 96365; 71045; 96367; 80076; 80048; 83880; 85025; 84145; 85730; 87040 ×2; 84484; 36415; 93005; 83605; J2543; J3370; J7040; A4606; A4663